=== PATIENT | female | born 1985 | race Caucasian/White ===

== ENCOUNTER → 2022-11-24 | Outpatient (CLI) | payer OTHER, SELFPAY ==
[2022-11-24 21:36] LABS: Absolute Lymphocyte Count 2.62 X10^3/uL (0.83-4.51); Absolute Neutrophil Count 3.4 X10^3/uL (2.0-7.7); Basophil# 0.03 X10^3/uL; Basophil% 0.4 % (0-1); Eosinophil# 0.16 X10^3/uL; Eosinophils% 2.4 % (0-5); Hematocrit 32.5 % (37-47); Hemoglobin 9.4 g/dL (12.0-15.0); Lymphocyte # 2.62 X10^3/ul (0.83-4.51); Lymphocyte % 39.2 % (19-41); Mean Corp Hgb Conc 28.9 g/dL (32-36); Mean Corpuscular Hgb 19.6 pg (27.0-32.0); Mean Corpuscular Volume 67.7 fL (81-99); Mean Platelet Vol. 10.4 fl (6.2-12.0); Monocyte# 0.46 X10^3/uL; Monocyte% 6.9 % (0-10); NRBC Flagged by Analyzer 0 % (0-5); Neutrophil # 3.41 X10^3/uL (2.7-7.7); POSITIVE MORPHOLOGY YES; Platelet Count 396 K/mm3 (150-450); RBC Distribution Width CV 21.1 % (11.6-14.6); RBC Distribution Width SD 49.9 fl (35.1-43.9); White Blood Count 6.7 K/mm3 (4.4-11.0)
[2022-11-24 21:37] LABS: Differential Indicated SCAN CRITERIA MET
[2022-11-24 22:12] LABS: Differential Comment SCANNED
[2022-11-24 22:23] LABS: ALB/GLOB Ratio 0.9 RATIO (0.9-2.4); AST(SGOT) 25 U/L (15-37); Alanine Aminotransfer ALT/SGPT 34 U/L (13-56); Albumin, Serum 3.6 g/dL (3.2-5.0); Alkaline Phosphatase 75 U/L (45-117); Anion Gap 8 (5-15); BUN 11 mg/dL (7-18); BUN/Creat Ratio 13.6 RATIO (10-20); Calcium,Total 8.5 mg/dL (8.5-10.1); Chloride 107 mmol/L (98-107); Creatinine, Serum 0.81 mg/dL (0.55-1.02); EST Glomerular Filtration Rate 84 mL/min (>60); Est Glom Filt Rate - Afr Amer 101 mL/min (>60); Globulin 4.2 g/dL (2.2-4.2); Glucose 91 mg/dL (74-106); Potassium 4.3 mmol/L (3.5-5.1); Protein, Total 7.8 g/dL (6.4-8.2); Rheumatoid Factor < 10.0 IU/mL (<15); Sodium Level 138 mmol/L (136-145); Thyroid Stim Hormone (TSH) 1.15 uIU/mL (0.358-3.74)
[2022-11-25 08:40] LABS: PTHIN 105.5 pg/mL (18.4-80.1)
[2022-11-26 15:08] LABS: Anti-Centromere B Ab <0.2 AI (0.0-0.9); Anti-Chromatin 0.3 AI (0.0-0.9); Anti-Jo <0.2 AI (0.0-0.9); Anti-Scleroderma-70 AB <0.2 AI (0.0-0.9); Anti-dsDNA Ab 1 IU/mL (0-9); RNP Ab 0.2 AI (0.0-0.9); SJOGREN'S Anti-SS-A test < 0.2 AI (0.0-0.9); SJOGREN'S Anti-SS-B test < 0.2 AI (0.0-0.9); Smith Ab <0.2 AI (0.0-0.9)
== END | disposition home or self-care (01) ==
PROVIDERS: Visit Provider Nurse Practitioner
DX: M25.551 Pain in right hip (principal); M25.552 Pain in left hip; M79.641 Pain in right hand; M79.642 Pain in left hand
CPT/HCPCS: 80053; 83970; 84443; 85025; 86225; 86235; 86431

== ENCOUNTER → 2022-12-01 | Outpatient (CLI) | payer OTHER, SELFPAY ==
--- NOTE | 2022-12-01 07:36 | MRI_ITS ---
STUDY: MRI BRAIN WITH AND WITHOUT CONTRAST (ATTENTION PITUITARY GLAND) REASON FOR EXAM: Female, 37 years old. Elevated prolactin level TECHNIQUE: Standardized multiplanar fat and water weighted pulse sequences were obtained. 12 mL of IV Clariscan was administered for the contrast portion of the examination. COMPARISON: None. FINDINGS: Normal size of the pituitary gland for the patient?s age and gender. Normal enhancement of the pituitary gland, without a demonstrated intrapituitary lesion. Normal infundibular stalk and suprasellar cistern. Normal optic chiasm and hypothalamus. Normal size of the ventricles and extra-axial spaces for the patient''s age. Normal white matter tracts of the supratentorial brain. Normal bilateral basal ganglia. Normal thalami. Normal flow voids within the major intracranial circulation suggesting patency by spin echo criteria. Normal venous enhancement. There is no enhancing intra-axial or extra-axial abnormality. There is no extra-axial fluid accumulation. Normal tectal plate and pineal gland. Normal midbrain, natasha and medulla. Normal cerebellum. Normal basal cisterns. Normal bilateral temporal bones. Normal bilateral internal auditory canals. No demonstrated orbital abnormality, within the constraints of a routine brain study. Normal visualized paranasal sinuses. Normal calvarium and skull base. Normal visualized upper cervical spine. Normal visualized soft tissue structures. MRI/Brain W/WO Contrast IMPRESSION: Normal unenhanced and enhanced MRI brain and pituitary gland. Electronically Signed: Kade Acosta MD at 12:11 EDT ,
== END | disposition home or self-care (01) ==
LOC: MRI 07:17
PROVIDERS: PCP Nurse Practitioner; Referring Provider Nurse Practitioner; Visit Provider Nurse Practitioner
DX: R79.89 Other specified abnormal findings of blood chemistry (principal)
CPT/HCPCS: 70553; A9575

== ENCOUNTER → 2022-12-04 | Outpatient (CLI) | payer OTHER, SELFPAY ==
[2022-12-04 21:09] LABS: Absolute Lymphocyte Count 2.19 X10^3/uL (0.83-4.51); Absolute Neutrophil Count 3.5 X10^3/uL (2.0-7.7); Basophil# 0.03 X10^3/uL; Basophil% 0.5 % (0-1); Differential Indicated SCAN CRITERIA MET; Eosinophil# 0.14 X10^3/uL; Eosinophils% 2.2 % (0-5); Hematocrit 26.7 % (37-47); Hemoglobin 7.8 g/dL (12.0-15.0); Lymphocyte # 2.19 X10^3/ul (0.83-4.51); Lymphocyte % 34.3 % (19-41); Mean Corp Hgb Conc 29.2 g/dL (32-36); Mean Corpuscular Hgb 20.1 pg (27.0-32.0); Mean Corpuscular Volume 68.8 fL (81-99); Monocyte% 7.8 % (0-10); NRBC Flagged by Analyzer 0 % (0-5); Neutrophil % 54.9 % (47-70); POSITIVE MORPHOLOGY YES; Platelet Count 543 K/mm3 (150-450); RBC Distribution Width CV 21.2 % (11.6-14.6); RBC Distribution Width SD 51.7 fl (35.1-43.9); Red Blood Count 3.88 M/mm3 (4.2-5.4); White Blood Count 6.4 K/mm3 (4.4-11.0)
[2022-12-04 21:13] LABS: CPK Total, Creatine Kinase 111 U/L (26-192); Follicle Stimulating Hormone 6.3 mIU/mL; Luteinizing Hormone 4.7 mIU/mL; Uric Acid 3.7 mg/dL (2.6-6.0)
[2022-12-04 21:52] LABS: Differential Comment SCANNED
[2022-12-04 21:53] LABS: Anisocytosis 2+; Crenated RBC 1+; Hypochromasia 2+; Ovalocyte RARE
[2022-12-04 21:54] LABS: Erythrocyte Sedimentation Rate 12 mm/hr (0-30)
[2022-12-08 16:09] LABS: Adrenocorticotropic Hormone 17.5 pg/mL (7.2-63.3); DHEA Sulfate 81.9 ug/dL (57.3-279.2); Growth Hormone 0.7 ng/mL (0.0-10.0)
== END | disposition home or self-care (01) ==
PROVIDERS: PCP Nurse Practitioner; Referring Provider Nurse Practitioner; Visit Provider Nurse Practitioner
DX: E22.1 Hyperprolactinemia (principal); R79.89 Other specified abnormal findings of blood chemistry; D64.9 Anemia, unspecified; M25.50 Pain in unspecified joint
CPT/HCPCS: 82024; 82533; 82550; 82627; 83001; 83002; 83003; 84550; 85025; 85652; 82626

== ENCOUNTER → 2022-12-07 | Outpatient (CLI) | payer OTHER, SELFPAY ==
--- NOTE | 2022-12-07 18:36 | US_ITS ---
EXAM: US PELVIS TRANSABDOMINAL AND TRANSVAGINAL, COMPLETE CLINICAL INDICATION: hgb dropping 7.8, aub TECHNIQUE: Transabdominal and transvaginal pelvic ultrasound was performed with grayscale and color Doppler imaging. Transvaginal imaging was used for better evaluation of the endometrium and adnexa. COMPARISON: No relevant prior studies available. FINDINGS: UTERUS/CERVIX: Uterus retroverted, measuring 7.9 x 5.8 x 4.3 cm. Endometrium: 5.6 mm. There is no uterine mass. RIGHT OVARY: 2.3 x 1.6 x 1.3 cm. Blood flow is present in the right ovary. LEFT OVARY: 2.4 x 1.8 x 1.7 cm, with a small simple cyst versus dominant follicle measuring 1.5 cm. Blood flow is present in the left ovary. FREE FLUID: None. BLADDER: Unremarkable as visualized. Wall is normal thickness for degree of distention. US/Pelvic (Non ) IMPRESSION: No acute findings in the pelvis. Electronically Signed: Keven Bach MD at 21:48 EDT ,
== END | disposition home or self-care (01) ==
LOC: US 18:36
PROVIDERS: PCP Nurse Practitioner; Visit Provider Nurse Practitioner
DX: N92.1 Excessive and frequent menstruation with irregular cycle (principal)
CPT/HCPCS: 76830; 76856

== ENCOUNTER → 2022-12-10 | Outpatient (CLI) | payer OTHER, SELFPAY ==
[2022-12-10 22:48] LABS: Absolute Lymphocyte Count 2.16 X10^3/uL (0.83-4.51); Absolute Neutrophil Count 4.9 X10^3/uL (2.0-7.7); Basophil# 0.04 X10^3/uL; Basophil% 0.5 % (0-1); Eosinophil# 0.07 X10^3/uL; Eosinophils% 0.9 % (0-5); Hematocrit 32.5 % (37-47); Hemoglobin 9.2 g/dL (12.0-15.0); Lymphocyte # 2.16 X10^3/ul (0.83-4.51); Lymphocyte % 27.9 % (19-41); Mean Corp Hgb Conc 28.3 g/dL (32-36); Mean Corpuscular Volume 70.5 fL (81-99); Monocyte# 0.59 X10^3/uL; Monocyte% 7.6 % (0-10); NRBC Flagged by Analyzer 0 % (0-5); Neutrophil # 4.88 X10^3/uL (2.7-7.7); POSITIVE MORPHOLOGY YES; Platelet Count 644 K/mm3 (150-450); RBC Distribution Width CV 21.5 % (11.6-14.6); RBC Distribution Width SD 53.3 fl (35.1-43.9); Red Blood Count 4.61 M/mm3 (4.2-5.4); White Blood Count 7.8 K/mm3 (4.4-11.0)
[2022-12-10 22:49] LABS: Differential Indicated SCAN CRITERIA MET
[2022-12-10 23:05] LABS: Vitamin B12 1657 pg/mL (211-911)
[2022-12-10 23:09] LABS: Iron 118 ug/dL (50-170); Iron Binding Capacity,Total 465 ug/dL (250-450); PERCENT IRON SATURATION 25.4 % (15.0-55.0)
[2022-12-10 23:28] LABS: Anisocytosis 2+; Crenated RBC 1+; Differential Comment SCANNED; Hypochromasia 2+
[2022-12-10 23:29] LABS: Ovalocyte RARE; Polychromasia RARE
[2022-12-12 09:08] LABS: Transferrin 373 mg/dL (192-364)
== END | disposition home or self-care (01) ==
PROVIDERS: PCP Nurse Practitioner; Visit Provider Nurse Practitioner
DX: N92.1 Excessive and frequent menstruation with irregular cycle (principal); E22.1 Hyperprolactinemia; D64.9 Anemia, unspecified
CPT/HCPCS: 82607; 83540; 83550; 84466; 85025

== ENCOUNTER → 2022-12-15 | Outpatient (CLI) | payer OTHER, SELFPAY ==
[2022-12-19 17:07] LABS: HPV APTIMA, High Risk Negative (Negative)
== END | disposition home or self-care (01) ==
LOC: LABSPEC 15:23
PROVIDERS: PCP Nurse Practitioner; Referring Provider Obstetrics & Gynecology; Visit Provider Obstetrics & Gynecology
DX: Z12.4 Encounter for screening for malignant neoplasm of cervix (principal)
CPT/HCPCS: 87624; 88175; G0145

== ENCOUNTER → 2022-12-17 | Outpatient (CLI) | payer OTHER, SELFPAY ==
[2022-12-17 09:57] LABS: PTHIN 69.4 pg/mL (18.4-80.1)
[2022-12-17 10:00] LABS: Prolactin 6.3 ng/mL
== END | disposition home or self-care (01) ==
PROVIDERS: PCP Nurse Practitioner; Referring Provider Obstetrics & Gynecology; Visit Provider Obstetrics & Gynecology
DX: E21.3 Hyperparathyroidism, unspecified (principal)
CPT/HCPCS: 36415; 83970; 84146

== ENCOUNTER → 2023-01-28 | Outpatient (CLI) | payer OTHER, SELFPAY ==
[2023-01-28 11:59] LABS: Absolute Lymphocyte Count 2.19 X10^3/uL (0.83-4.51); Absolute Neutrophil Count 4.2 X10^3/uL (2.0-7.7); Basophil# 0.05 X10^3/uL; Basophil% 0.7 % (0-1); Eosinophils% 1.4 % (0-5); Hematocrit 34.2 % (37-47); Hemoglobin 9.8 g/dL (12.0-15.0); Lymphocyte # 2.19 X10^3/ul (0.83-4.51); Lymphocyte % 30.1 % (19-41); Mean Corp Hgb Conc 28.7 g/dL (32-36); Mean Corpuscular Hgb 20.1 pg (27.0-32.0); Mean Corpuscular Volume 70.2 fL (81-99); Mean Platelet Vol. 9.1 fl (6.2-12.0); Monocyte# 0.71 X10^3/uL; Monocyte% 9.8 % (0-10); NRBC Flagged by Analyzer 0 % (0-5); Neutrophil # 4.21 X10^3/uL (2.7-7.7); Neutrophil % 57.9 % (47-70); POSITIVE MORPHOLOGY YES; Platelet Count 462 K/mm3 (150-450); RBC Distribution Width CV 21.5 % (11.6-14.6); RBC Distribution Width SD 53.4 fl (35.1-43.9); Red Blood Count 4.87 M/mm3 (4.2-5.4); White Blood Count 7.3 K/mm3 (4.4-11.0)
[2023-01-28 12:02] LABS: Differential Indicated SCAN CRITERIA MET
[2023-01-28 12:24] LABS: Anisocytosis 1+
== END | disposition home or self-care (01) ==
LOC: LAB 11:45
PROVIDERS: PCP Nurse Practitioner; Referring Provider Internal Medicine Cardiovascular Disease; Visit Provider Internal Medicine Cardiovascular Disease
DX: R06.09 Other forms of dyspnea (principal); R00.2 Palpitations
CPT/HCPCS: 36415; 85025

== ENCOUNTER → 2023-02-16 | Outpatient (CLI) | payer OTHER, SELFPAY ==
--- NOTE | 2023-02-16 10:45 | EMB_PTH ---
PATIENT: JOSE LUIS FOWLER LOC: [facility] U#:[id number] AGE/SX: 37/F ROOM: RE02/16/[address]: Dr. Mague Campa DO : 1985 BED: DIS: 02/16/2023 SPEC #: [id number] RECD: 02/17/23 16:16 STATUS: BINH PABLO #: [id number] KAUR: 02/16/23 10:[address]: Mague Campa DEPT: SURGICAL PATHOLOGY RECD BY: Poppy Bruner ENTERED: 02/17/23 10:59 SP TYPE: ENDOM BX/C ANJELICA DR: Shireen Clements, SOFT SUGAR OPERATOR HEAD-C Tissues: Endometrium, NOS Procedures: Surgery Specimen Level IV HEADER OPERATION: EMB PRE-OP DIAGNOSIS: AUB TISSUE SUBMITTED: Endometrial lining MICROSCOPIC DIAGNOSIS Endometrial biopsy: Consistent with exogenous hormone effects. SJ: 02/18/2023 MICROSCOPIC DESCRIPTION Slides are reviewed. GROSS DESCRIPTION Received in formalin is one container labeled with the patient name and designated endometrial lining . The specimen consists of multiple fragments of pink soft tissue measuring in aggregate 2 x 0.3 x 0.1 cm. The specimen is totally submitted in one cassette. /SUE:pennie 02/17/23 TC:5 CPT: 96013
== END | disposition home or self-care (01) ==
LOC: LABSPEC 16:19
PROVIDERS: PCP Nurse Practitioner; Referring Provider Obstetrics & Gynecology; Visit Provider Obstetrics & Gynecology
DX: N93.9 Abnormal uterine and vaginal bleeding, unspecified (principal)
CPT/HCPCS: 88305

== ENCOUNTER → 2023-02-23 | Outpatient (CLI) | payer OTHER, SELFPAY ==
--- NOTE | 2023-02-23 10:43 | ECHOD_ITS ---
Reason For Study: Palpitations, Dyspnea Procedure This was a 2D Doppler, Color Flow transthoracic echocardiogram. Exam performed in department. Left Ventricle Normal left ventricle. The left ventricular ejection fraction is 65 %. Normal diastololic function. Right Ventricle Normal right ventricle. Atria The left and right atria are normal. Mitral Valve Trivial mitral valve insufficiency. Tricuspid Valve Trivial tricuspid valve insufficiency. Normal pulmonary artery pressure. Aortic Valve Trisinus/trileaflet aortic valve. Pulmonic Valve The pulmonic valve is not well visualized. Trivial pulmonic valve insufficiency. Great Vessels Normal sized aortic root. Pericardium/Pleural No pericardial effusion. MMode/2D Measurements & Calculations LVIDd: 4.7 cm IVSd: 0.82 cm Ao root diam: 3.0 cm LVIDs: 3.2 cm LVPWd: 0.65 cm LA dimension: 3.6 cm RVDd: 3.2 cm FS: 32.4 % LAV(MOD-bp): 46.0 ml LVAd ap4: 25.2 cm2 SV(MOD-sp4): 44.5 ml LAV(MOD-bp) Indexed: 25.3 ml/m2 LVLd ap4: 7.3 cm LAV(MOD-sp2): 43.1 ml EDV(MOD-sp4): 71.4 ml LAV(MOD-sp4): 47.3 ml EDV(sp4-el): 73.6 ml LVAs ap4: 13.7 cm2 LVLs ap4: 5.8 cm ESV(MOD-sp4): 26.9 ml ESV(sp4-el): 27.1 ml EF(MOD-sp4): 62.4 % EF(sp4-el): 63.1 % SV(sp4-el): 46.4 ml LA A4 area: 16.5 cm2 RA A4 area: 14.0 cm2 TAPSE: 1.9 cm Time Measurements MV dec time: 0.16 sec Doppler Measurements & Calculations MV E max kana: 81.4 cm/sec Lat Peak E' Kana: 17.9 cm/sec Med Peak E' Kana: 11.3 cm/sec MV A max kana: 52.2 cm/sec E/E' lat: 4.5 E/E' med: 7.2 MV E/A: 1.6 MV V2 max: 91.2 cm/sec MV P1/2t max kana: 92.5 cm/sec Ao V2 max: 130.9 cm/sec MV max P.3 mmHg MV P1/2t: 55.7 msec Ao max P.9 mmHg MV V2 mean: 56.0 cm/sec MV dec slope: 486.0 cm/sec2 Ao V2 mean: 94.0 cm/sec MV mean P.4 mmHg Ao mean P.0 mmHg MV V2 VTI: 22.6 cm MVA(P1/2t): 3.9 cm2 Ao V2 VTI: 25.1 cm AV (velocity ratio): 0.86 LV V1 max: 101.7 cm/sec PA V2 max: 91.7 cm/sec TR max kana: 223.2 cm/sec LV V1 max P.1 mmHg PA V2 mean: 65.0 cm/sec TR max P.9 mmHg LV V1 mean P.5 mmHg LV V1 mean: 74.9 cm/sec LV V1 VTI: 21.7 cm ECHO/Echo Complete Interpretation Summary The left ventricular ejection fraction is 65 %. Ordering Physician: Mar Cardona Referring Physician: Shireen Clements Performed By: Mansoor Haque RCS
--- NOTE | 2023-02-23 11:52 | STRESSREP_ITS ---
Stress Test Report In date: 02/23/2023 Procedure: Exercise tolerance test Indications: Palpitations Consent: Per the patient Procedure: The patient exercised on a Anival protocol for 10 minutes achieving a peak heart rate of 187 bpm (103 % predicted maximal heart rate) with a peak blood pressure 148/68 mmHg and a peak MET capacity of approximately 13.1 MET's. The baseline ECG demonstrated sinus rhythm. The peak exercise ECG demonstrated sinus tachycardia with no ischemic changes. There were no cardiac dysrhythmias pretest, during exercise, or recovery. The functional capacity was considered good. The patient had no complaints of chest discomfort during exercise or recovery. The examination was discontinued secondary to target heart rate being achieved. Impression: 1. Technically adequate (percent predicted maximal heart rate greater than 85%) exercise tolerance test 2. Peak exercise ECG with no ischemic changes 3. There were no cardiac dysrhythmias during exercise or recovery This note was generated with [employer] software. It may contain incorrect words, spelling, and punctuation that were not noted in checking the note before signing.
== END | disposition home or self-care (01) ==
LOC: CVS 10:40
PROVIDERS: PCP Nurse Practitioner; Referring Provider Internal Medicine Cardiovascular Disease; Visit Provider Internal Medicine Cardiovascular Disease
DX: R06.09 Other forms of dyspnea (principal); R00.2 Palpitations; D64.9 Anemia, unspecified
CPT/HCPCS: 93017; 93225; 93226; 93306

== ENCOUNTER 2023-04-20 06:37 | Day surgery (SDC) | payer OTHER, SELFPAY ==
[2023-04-15 09:55] LABS: Hematocrit 35.1 % (37-47); Hemoglobin 10.2 g/dL (12.0-15.0); Mean Corp Hgb Conc 29.1 g/dL (32-36); Mean Corpuscular Hgb 20.6 pg (27.0-32.0); Mean Corpuscular Volume 71.1 fL (81-99); Mean Platelet Vol. 10.2 fl (6.2-12.0); POSITIVE MORPHOLOGY YES; Platelet Count 393 K/mm3 (150-450); RBC Distribution Width CV 20.2 % (11.6-14.6); RBC Distribution Width SD 50.5 fl (35.1-43.9); Red Blood Count 4.94 M/mm3 (4.2-5.4); White Blood Count 6.7 K/mm3 (4.4-11.0)
[2023-04-15 09:57] LABS: Scan Indicated on CBC? Y/N YES- FLAGS NOTED
[2023-04-15 10:16] LABS: Anion Gap 5 (5-15); BUN 11 mg/dL (7-18); BUN/Creat Ratio 13.3 RATIO (10-20); Calcium,Total 8.7 mg/dL (8.5-10.1); Chloride 109 mmol/L (98-107); Creatinine, Serum 0.83 mg/dL (0.55-1.02); EST Glomerular Filtration Rate 81 mL/min (>60); Est Glom Filt Rate - Afr Amer 98 mL/min (>60); Glucose 87 mg/dL (74-106); Magnesium 2.2 mg/dL (1.6-2.6); Potassium 4.3 mmol/L (3.5-5.1); Sodium Level 139 mmol/L (136-145)
[2023-04-15 10:24] LABS: Prothrombin Time (Protime)PT. 13.1 SECONDS (11.7-14.9)
[2023-04-15 10:25] LABS: Partial Thromboplast Time 28.3 Seconds (24.1-36.2)
[2023-04-20] VITALS (13 sets, daily range): BP systolic 90–110; BP diastolic 53–73; PULSE 61–78; RESP 16–20; TEMP 36.1–36.5; O2SAT 99–100; BMI 27.9
--- OUTSIDE RECORDS SUMMARY | 2023-04-20 06:39 | XMS RPT_ITS | CCD ---
Author Name Unknown Address [address] [place] [address] Organization [facility] Care Team Providers Care Elder Assistant Name Role Phone Ralph Urrutia Primary Care Provider [phone] Allergies Allergy Classification Reported Allergen(s) Allergy Type Date of Onset Reaction(s) Facility (1 source) Codeine Drug Allergy 06-16-2019 [place], [place] Medications Current Medications Medication Drug Class(es) Dates Sig (Normalized) Sig (Original) escitalopram 10 mg oral tablet (1 source) Serotonin Reuptake Inhibitor Start: 06-16-2019 take 1 tablet by mouth once daily escitalopram (LEXAPRO) 10 MG tablet Indications: Mild major depression (HCC) , Positive depression screening Take 1 tablet by mouth daily 30 tablet 0 06/16/2019 Active Problems Problem Classification Problem Date Documented Da te Episodic/Chronic Mood disorders (2 sources) Mild major depression; Translations: [Mild major depression (HCC)] Onset: 06-19-2019 06-19-2019 Chronic Other skin disorders (1 source) Loss of hair; Translations: [Hair loss] Episodic Unclassified (3 sources) Patient encounter status; Translations: [Screening for endocrine disorder] Results Test Name Value Interpretation Reference Range Facil ity Encounters Encounter Date Encounter Type Care Provider Facility Start: 06-19-2019 End: 06-19-2019 Subsequent hospital visit by physician Fifi Denise Work Phone: [facility] Laboratory Procedures Date Procedure Procedure Detail Performing Clinician Start: 06-19-2019 25 hydroxy includes fractions if performed Fifi Denise Work Phone: Start: 06-19-2019 Assay of ferritin Gretc hen Howie Work Phone: Start: 06-19-2019 Assay of thyroid stimulating hormone tsh Fifi Denise Work Phone: Start: 06-19-2019 Blood count complete auto&auto difrntl wbc Fifi Denise Work Phone: Start: 06-19-2019 Comprehensive metabo lic panel Fifi Denise Work Phone: Start: 06-19-2019 Iron binding capacity G eladio Denise Work Phone: Start: 06-19-2019 Lipid panel Fifi zapata Work Phone: Plan of Treatment Date Care Activity Detail Author Start: 09-16-2033 Shingles Vaccine (1 of 2) Valdivia gles Vaccine (1 of 2) [place], [place] Start: 12-11-2018 Influenza vaccination Flu vaccine (# 1) [place], [place] Start: 09-16-2004 Cervical cancer screen Cervical canc er screen [place], [place] Start: 09-16-2002 DTaP/Tdap/Td vaccine (1 - Tdap) DTaP/Tdap/Td vaccine (1 - Tdap) [place] Start: 09-16-1998 HIV screen HIV screen [place], [place] Start: 09-16-1984 Varicella vaccine (1 of 2 - 2-dose childhood series) Varicella vaccine (1 of 2 - 2-dose childhood series) [place] Payers Date Payer Category Payer Private Health Insurance [employer] PPO xxxxxxxx 2019-Present [phone] [address] [place] [address] xxxxxxxx [id number] Social History Date Type Detail Facility Start: 06-16-2019 Tobacco smoking stat us NHIS Never smoker [place], [place] Start: 06-16-2019 Alcohol intake Ex-drinker (finding) [place] Start: 06-16-2019 History SDOH Social Connections Get Together 4 [place] Start: 06-16-2019 History SDOH Social Connections [facility] [place] Start: 06-16-2019 History SDOH Social Connections Membership 1 [place] Start: 06-16-2019 History SDFL Social Connections Meetings 2 [place] Start: 06-16-2019 History SDOH Physica l Activity DPW 0 [place] Start: 06-16-2019 History SDOH Financial 5 [place] Sex Assigned At Not on file [place], [place] Summary Purpose Family History No Family History Records Found Advance Directives Documents on File Type Date Recorded 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 This clinical summary was aggregated from multiple sources. Caution should be exercised in using it in the provision of clinical care. This summary normalizes information from multiple sources, and as a consequence, information in this document may materially change the coding, format and clinical context of patient data. In addition, data may be omitted in some cases. CLINICAL DECISIONS SHOULD BE BASED ON THE PRIMARY CLINICAL RECORDS. [email or web address]. provides no warranty or guarantee of the accuracy or completeness of information in this document.
[2023-04-20 06:59] LABS: Internal QC Validated? YES +Cl - CLEAR BKGD; Pregnancy, Urine Negative Negative
[2023-04-20] MEDS: Lactated Ringers 1,000 ML 40 ML IV (07:05)
[2023-04-20] MEDS: Magnesium 1 GM over 15 mins IV (07:06)
[2023-04-20] MEDS: Acetaminophen 500 MG Tablet 1000 MG PO (07:07)
[2023-04-20] MEDS: Gabapentin 600 MG Tablet PO (07:07)
[2023-04-20 07:34] LABS: Bedside Glucose 135 mg/dL (74-106)
--- NOTE | 2023-04-20 08:22 | PCM.HP.BLA ---
History and Physical Date of Admission: 04/20/23 Intake Vital Signs 02/16/2310:12 03/31/2314:34 03/31/2314:35 Height 5 ft 5 in 5 ft 5 in 5 ft 5 in Weight: 166 lb BMI 27.6 BP 109/77 Intake Visit Reasons: surgical consult/preop hyst Data Developer Required: No Is patient in pain?: No Allergies codeine Adverse Reaction (Verified 03/31/23 14:33) Nausea/Vom/Diarrhea Medications cyanocobalamin (vitamin B-12) 1,000 mcg/mL injection solution 1,000 mcg IM QWEEK anemia 30 days #5 mL 11/25/22 [Rx Confirmed 03/31/23] syringe with needle, safety 3 mL 25 gauge x 1 (BD SafetyGlide Syringe) #50 ea 11/25/22 [Rx Confirmed 03/31/23] ferrous sulfate 325 mg (65 mg iron) tablet 325 mg PO DAILY 12/15/22 [History Confirmed 03/31/23] multivitamin with iron 1 tab PO DAILY 12/15/22 [History Confirmed 03/31/23] norethindrone acetate 5 mg tablet 5 mg PO DAILY #30 tabs 12/15/22 [Rx Confirmed 03/31/23] Post menopausal: No Patient : No : No PFSH Medical History Anemia Atopic eczema Patellar malalignment syndrome of right knee Surgical History S/P right knee surgery S/P tonsillectomy Family History Mother Rheumatoid arthritis Thyroid disorderGrandfather CVA (cerebral vascular accident) Colon cancer CancerGrandmother Esophageal cancerFather CAD (coronary artery disease) Valve replacementGrandfather Esophageal cancer Social History Smoking Status: Never smoker alcohol intake: never substance use type: does not use caffeine: Yes Type: tea Number of servings: 4 what type of physical activity do you participate in: none seatbelt use: always do you feel safe at home: Yes additional social history: - [facility] surgical consult/preop hyst Details: JOSE LUIS FOWLER is a 37 year old who presents for preop hysterectomy. She is tentatively scheduled for a vaginal hyst on 04/20/2023 for menorrhagia. Uterus is 7 cm and emb was benign . She has a history of normal paps. We discussed alternative options including ocps and ablation and she would like to proceed with the hysterectomy. She has had 2 children vaginally. History 2 Elective abortions Hx Para 2 Spontaneous abortions Hx # Term Pregnancies Ectopic pregnancies Hx # Pregnancies Multiple births # of living children 2 Past Pregnancies Del. Date Name GA/Weeks Outcome Route Bth Weight Gen Labor Lgth Anesthesia Del Locatn Provider FOB Unknown Lena Unknown [place] ROS Const ROS Unobtainable: All systems reviewed & are unremarkable except as noted in H Resp Resp: Reports system reviewed and no additional complaints, except as documented; Denies cough GI GI: Reports as per HPI Psych Psych: Reports system reviewed and no additional complaints, except as documented Exam Const General: cooperative, healthy appearing, comfortable and no acute distress Resp Effort & Inspection: normal respiratory effort Skin General: no rashes or lesions noted Psych Appearance: grossly normal Speech and Movement: speech and movement normal Coding Level of Care Code Off vis,est,level 4 Diagnoses Metrorrhagia N92.1 Other dietary vitamin B12 deficiency anemia D51.3 Anemia type: B12 deficiency Vitamin B12 deficiency anemia type: other dietary B12 deficiency Assessment and Plan Assessment and Plan (1) Metrorrhagia: Status: Acute (2) Anemia: Status: Chronic Qualifiers: Anemia type: B12 deficiency Vitamin B12 deficiency anemia type: other dietary B12 deficiency Qualified Code(s): D51.3 - Other dietary vitamin B12 deficiency anemia Plan After discussing the patient's diagnosis and treatment plan options, patient wishes to proceed with surgical management. I have discussed with the patient the risks, benefits, and alternatives of the procedure which include but are not limited to risks of anesthesia, bleeding, infection, possible damage to bowel, bladder, or surrounding vasculature which could lead to additional surgery to evaluate any complications. Patient agrees to procedure and wishes to proceed. ACOG/uptodate references given for additional information regarding procedure. plan for total vaginal hysterectomy, possible salpingectomy, cystoscopy.
--- NOTE | 2023-04-20 08:30 | HYST_PTH ---
PATHOLOGY RESULTS PATIENT: JOSE LUIS FOWLER LOC: [facility] – [place], [place] U#:[id number] AGE/SX: 37/F ROOM: RE04/20/[address]: Dr. Mague Campa DO : 1985 BED: DIS: 04/20/2023 SPEC #: [id number] RECD: 04/20/23 11:46 STATUS: BINH WATERSJosse #: [id number] KAUR: 04/20/23 08:[address]: Mague Campa DEPT: SURGICAL PATHOLOGY RECD BY: Poppy Bruner ENTERED: 04/20/23 11:46 SP TYPE: HYSTERECT OTHR DR: Shireen Clements, EVP SALES-C Tissues: Uterus, NOS Procedures: Surgery Specimen Level V HEADER OPERATION: Hysterectomy, TVH, bilateral salpingectomy PRE-OP DIAGNOSIS: Metrorrhagia, anemia TISSUE SUBMITTED: Cervix, uterus and bilateral fallopian tubes MICROSCOPIC DIAGNOSIS Cervix, uterus and bilateral fallopian tubes, hysterectomy and bilateral salpingectomy: Cervix - chronic inflammation and squamous metaplasia. Endometrium - weakly secretory endometrium. Myometrium - no pathologic diagnosis. Bilateral fallopian tubes - no pathologic diagnosis. SJ:montse 04/21/2023 MICROSCOPIC DESCRIPTION Slides are reviewed. GROSS DESCRIPTION Received in fixative is one container labeled with the patient's name and designated cervix, uterus, bilateral fallopian tubes. The specimen consists of a hysterectomy specimen consisting of uterus with cervix and detached bilateral fallopian tubes. The uterus with cervix weighs 85 gm and measures 9.0 x 6.0 x 4.5 cm. The serosal surface is lutz, glistening. The ectocervical mucosa is unremarkable. The external os is circular in contour and covered with mucoid material. The endocervical canal measures 2.5 cm in length and the endocervical mucosa is lutz, glistening and unremarkable. The triangular endometrial cavity measures 4.5 cm in length and 2.5 cm in width. The endometrium is lutz, glistening without any mass lesion and measures 0.1 cm in thickness. Sections of the uterine wall do not reveal any mass lesion and measures 2.5 cm in thickness. The fallopian tubes are not identified as right or left and measures 3.0 cm in length and 0.4 cm in diameter and 2.5 cm in length and 0.5 cm in diameter. The fimbrial end is identified only in one of the fallopian tubes. Sections reveal unremarkable cut surfaces. Keg Raiser sections are submitted in eight cassettes as follows: 1 - anterior cervix, 2 - posterior cervix, 3 & 4 - anterior uterine wall, 5 & 6 - posterior uterine wall, 7 - fallopian tube with fimbrial end, 8??fallopian tube without distinct fimbrial end. The fallopian tubes are submitted in entirety. / SJ:rg 04/20/2023 TC:5 CPT: 75982
[2023-04-20] MEDS: Cefazolin 2 GM in 0.9% Normal Saline (100mL Bag) 100 ML IV (08:56)
[2023-04-20] MEDS: Bupivacaine 0.25% 30 ML Vial (09:21)
--- NOTE | 2023-04-20 10:17 | OP.PCM_ITS ---
Problems Associated Problem List Diagnoses (1) Metrorrhagia: Report of Operation Date of Procedure: 04/20/23 Pre-Operative Diagnosis: menorrhagia, failed conservative treatment Post-Operative Diagnosis: menorrhagia, failed conservative treatment Surgery/Procedure Performed:: total vaginal hysterectomy, bilateral salpingectomy Description of Surgical Findings:: grade 2 rectocele, grade 1 cystocele, grade 2 uterine prolapse, normal fallopian tubes, bilateral ovaries, and uterus. Surgeon: Mague Campa calender wind up helper: Daren Schmidt Type of Anesthesia: General Specimen's removed: uterus, cervix, fallopian tubes Drains: none Estimated Blood Loss (mL): 150cc Fluids Replaced: 1200cc Description of Procedure: Procedure: The patient was prepped and draped in the usual sterile manner for an abdominal perineal procedure. A weighted speculum was placed in the posterior vaginal vault. A Vogt catheter was placed of the urethra without difficulty. The cervix was grasped with a single-tooth tenaculum on both its anterior and posterior lips. With downward traction, a circumferential incision was made on the vaginal mucosa. This allowed dissection and entrance into the posterior cul-de-sac at this time we visualized the uterosacral ligaments. These were clamped and ligated with a #0 Vicryl suture. Cervical vesicle space was then created by both blunt and sharp dissection, allowing us to see the cardinal ligaments. These were clamped and ligated with a #0 Vicryl suture as well. Once in the cervical vesicle space, we were then able to completely ligate the uterosacral cardinal ligament complex with a #0 Vicryl suture. The anterior cul-de-sac was then entered sharply. Omentum and intestines were then visualized through the anterior cul-de-sac window and we began removal of the uterine body. Uterine arteries were then clamped and ligated with a #0 Vicryl suture and carried down towards the uterus until complete removal was obtained. #0 Vicryl suture was used on all major pedicles with Yanira clamping. The tubes and ovaries were visualized on either side. The tubo ovarian complex was doubly ligated with a #0 Vicryl suture The entire vaginal vault was visualized We inspected for hemostasis and this was secured. Angled sutures were placed at 3 and 9:00 using #0 Vicryl suture in the usual manner. Once these angled sutures were placed in tension was applied we could see the peritoneum on either side. We closed the peritoneum with a #0 Vicryl in a running continuous manner. Hemostasis was excellent. We irrigated copiously. The sponge count was correct x2 at this time. We began closure of the vaginal mucosa. #0 Vicryl suture was used to close the vaginal mucosa in an interrupted manner, starting at the 9 and 3:00 positions and meeting in the midline. The Vogt catheter was then removed. The patient tolerated the procedure well sponge lap and needle counts were correct x2 and she is now being brought to the recovery room in stable condition Grafts/Implants Used: none Procedure Start Time: 09:20 Procedure Stop Time: 10:14 Complications none Admit VTE Documentation VTE Present on Admission: No VTE Mechan Device Prophylaxis: SCD's VTE Pharm Prophylaxis ordered?: No Multi Select Codes Urinary/Genital Urinary/Genital CPT Codes: 29930 TVH+BS/O <250gr uterus
--- NOTE | 2023-04-20 10:21 | PCM.DC ---
Discharge Instructions Diet Discharge Diet: No restrictions Activity Discharge Activity: Return to Normal Activity, May Not Drive (while taking narcotic pain medications.) and May Shower May resume sexual activity in: 6-8 weeks Dressing / Incision Call your doctor if your incision/area has: Continuous Slow Oozing, Sudden Increased Bleeding, Increased Pain/ Swelling, Increased Redness and Foul Smelling Discharge Call your doctor if you observe: Fever of 101 or Higher, Inability to urinate, Inability to have a bowel movement and Using more than 1 pad per hour Follow Up Care Please Follow Up With: Mague Campa DO Test Results: Test results from this visit will be discussed in further detail at your follow-up appointment, if applicable. Discharge Plan Admission Primary Reason for Your Visit: vaginal hysterectomy Attending Provider: Mague Campa Primary Care Provider: Shireen Clements NP Discharge Orders/Prescriptions Prescriptions: New ibuprofen 800 mg tablet 800 mg PO Q8H PRN (Reason: pain) Qty: 30 0RF oxycodone-acetaminophen [Percocet] 5-325 mg tablet 1 tab PO Q4H PRN (Reason: pain) 7 Days Qty: 30 0RF Rx Instructions: 1-2 tabs q 4 hrs as needed for pain docusate sodium [Colace] 100 mg capsule 100 mg PO DAILY Qty: 30 0RF Continued ferrous sulfate 325 mg (65 mg iron) tablet 325 mg PO DAILY multivitamin with iron Tablet 1 tab PO DAILY cyanocobalamin (vitamin B-12) 1,000 mcg/mL solution 1,000 mcg IM FR Discontinued norethindrone acetate 5 mg tablet 5 mg PO DAILY Qty: 30 6RF Referrals / Follow Up: Shireen Clements NP, SUPERVISOR UNDERWRITING CLERKS-C [Primary Care Provider] - Disposition Disposition (needs filled in before D/C Order can be placed): Home, Self Care
[2023-04-20] MEDS: Lactated Ringers 1,000 ML 100 ML IV (11:32)
[2023-04-20] MEDS: Phenazopyridine 95 MG Tablet 190 MG PO (15:19)
[2023-04-20 15:40] LABS: Creatinine, Serum 0.85 mg/dL (0.55-1.02); EST Glomerular Filtration Rate 79 mL/min (>60); Est Glom Filt Rate - Afr Amer 96 mL/min (>60); Estimated Creatinine Clearance 90.68 ml/min
[2023-04-20] MEDS: Furosemide 20 MG/2 ML VIAL IV (15:54)
[2023-04-20 15:57] LABS: Absolute Lymphocyte Count 0.78 X10^3/uL (0.83-4.51); Absolute Neutrophil Count 12.8 X10^3/uL (2.0-7.7); Basophil# 0.02 X10^3/uL; Basophil% 0.1 % (0-1); Hematocrit 30.9 % (37-47); Hemoglobin 8.9 g/dL (12.0-15.0); Lymphocyte # 0.78 X10^3/ul (0.83-4.51); Lymphocyte % 5.6 % (19-41); Mean Corp Hgb Conc 28.8 g/dL (32-36); Mean Corpuscular Hgb 20.9 pg (27.0-32.0); Mean Corpuscular Volume 72.7 fL (81-99); Mean Platelet Vol. 9.5 fl (6.2-12.0); Monocyte# 0.14 X10^3/uL; NRBC Flagged by Analyzer 0 % (0-5); Neutrophil # 12.81 X10^3/uL (2.7-7.7); Neutrophil % 92.6 % (47-70); Platelet Count 347 K/mm3 (150-450); RBC Distribution Width CV 19.9 % (11.6-14.6); RBC Distribution Width SD 51.8 fl (35.1-43.9); Red Blood Count 4.25 M/mm3 (4.2-5.4); White Blood Count 13.8 K/mm3 (4.4-11.0)
[2023-04-20 16:16] LABS: AST(SGOT) 25 U/L (15-37); Alanine Aminotransfer ALT/SGPT 35 U/L (13-56); Albumin, Serum 2.9 g/dL (3.2-5.0); Alkaline Phosphatase 51 U/L (45-117); Bilirubin, Direct 0.06 mg/dL (0.00-0.30); Globulin 3.3 g/dL (2.2-4.2); Protein, Total 6.2 g/dL (6.4-8.2)
== END 2023-04-20 16:39 | disposition home or self-care (01) ==
LOC: SDC 06:37 → AC 06:37
PROVIDERS: Anesthesiology; PCP Nurse Practitioner; Referring Provider Obstetrics & Gynecology; Visit Provider Obstetrics & Gynecology
PROC: (CPT 58260; principal; 2023-04-20 08:10)
DX: N87.9 Dysplasia of cervix uteri, unspecified (principal); N72 Inflammatory disease of cervix uteri; N92.1 Excessive and frequent menstruation with irregular cycle; D51.3 Other dietary vitamin B12 deficiency anemia; Z79.899 Other long term (current) drug therapy
CPT/HCPCS: 58262; 00944; 36415; 80048; 80076; 81025; 82565; 82962; 83735; 85025; 85027; 85610; 85730; 86850; 86900; 86901; 88307; J7120; A4216; J1940; J2405; J3475

== ENCOUNTER → 2023-05-31 | Outpatient (CLI) | payer OTHER, SELFPAY ==
[2023-05-31 11:09] LABS: Absolute Lymphocyte Count 2.15 X10^3/uL (0.83-4.51); Absolute Neutrophil Count 4.5 X10^3/uL (2.0-7.7); Basophil# 0.05 X10^3/uL; Basophil% 0.7 % (0-1); Eosinophil# 0.11 X10^3/uL; Eosinophils% 1.5 % (0-5); Hematocrit 38.3 % (37-47); Hemoglobin 11.2 g/dL (12.0-15.0); Lymphocyte # 2.15 X10^3/ul (0.83-4.51); Lymphocyte % 28.8 % (19-41); Mean Corp Hgb Conc 29.2 g/dL (32-36); Mean Corpuscular Hgb 21.7 pg (27.0-32.0); Mean Corpuscular Volume 74.4 fL (81-99); Mean Platelet Vol. 9.4 fl (6.2-12.0); Monocyte# 0.64 X10^3/uL; Monocyte% 8.6 % (0-10); NRBC Flagged by Analyzer 0 % (0-5); Neutrophil % 60.1 % (47-70); POSITIVE MORPHOLOGY YES; Platelet Count 382 K/mm3 (150-450); RBC Distribution Width CV 20.6 % (11.6-14.6); RBC Distribution Width SD 54.1 fl (35.1-43.9); Red Blood Count 5.15 M/mm3 (4.2-5.4); White Blood Count 7.5 K/mm3 (4.4-11.0)
[2023-05-31 11:16] LABS: Differential Indicated SCAN CRITERIA MET
--- OUTSIDE RECORDS SUMMARY | 2023-05-31 11:23 | XMS RPT_ITS | CCD ---
Author Name Unknown Address [address] [place] [address] Organization [facility] Care Team Providers Care Career Services Officer Name Role Phone Ralph Urrutia Primary Care Provider Allergies Allergy Classification Reported Allergen(s) Allergy Type Date of Onset Reaction(s) Facility (1 source) Codeine Drug Allergy 06-16-2019 [place], [place] Medications Current Medications Medication Drug Class(es) [...] 2) Valdivia gles Vaccine (1 of 2) [place], [place] Start: 12-11-2018 Influenza vaccination Flu vaccine (# 1) [place] Start: 09-16-2004 Cervical cancer screen Cervical canc er screen [place], [place] Start: 09-16-2002 DTaP/Tdap/Td vaccine (1 - Tdap) DTaP/Tdap/Td vaccine (1 - Tdap) [place] Start: 09-16-1998 HIV screen HIV screen [place], [place] Start: 09-16-1984 Varicella vaccine (1 of 2 - 2-dose childhood series) Varicella vaccine (1 of 2 - 2-dose childhood series) [place] Payers Date Payer Category Payer Private Health Insurance [id number] P[employer] xxxxxxxx 2019-Present [phone] [id number] [place] [address] [id number] Social History Date Type Detail Facility Start: 06-16-2019 Tobacco smoking stat us [facility] Never smoker [place] Start: 06-16-2019 Alcohol intake Ex-drinker (finding) [place] Start: 06-16-2019 History SDOH Social Connections Get Together 4 [place] Start: 06-16-2019 History SDOH Social Connections [facility] 3 [place] Start: 06-16-2019 History SDOH Social Connections Membership 1 [place] Start: 06-16-2019 History SDMA Social Connections Meetings 2 [place] Start: 06-16-2019 History SDOH Physica l Activity DPW 0 [place] Start: 06-16-2019 History SDOH Financial 5 [place] Sex Assigned At Not on file [place] Summary Purpose Family History No Family History Records Found Advance Directives Documents on File Type Date Recorded 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 [employer] provides no warranty or guarantee of the accuracy or completeness of information in this document.
== END | disposition home or self-care (01) ==
LOC: PAVLAB 10:57
PROVIDERS: PCP Nurse Practitioner; Referring Provider Obstetrics & Gynecology; Visit Provider Obstetrics & Gynecology
DX: D64.9 Anemia, unspecified (principal)
CPT/HCPCS: 36415; 85025